=== PATIENT | male | born 1955 | race Caucasian/White ===

== ENCOUNTER 2018-04-29 09:07 | Day surgery (SDC) | payer OTHER ==
[~2018-04-29] VITALS: Ht 175.3 cm; Wt 93.1 kg
[~2018-04-29 09:07] MED LIST: MULTI VITAMINS1 TAB PO; NORVASC 5MG5 MG/TAB PO; PRINIVIL10 MG PO; VALTREX 50500 MG/TAB PO
[2018-04-29 10:05] VITALS: BP 158/99; PULSE 95; TEMP 16
[2018-04-29] MEDS ORDERED: STOOL SOFTENER100 M2 PO (10:12)
[2018-04-29 12:30] VITALS: BP 143/91; PULSE 73; TEMP 98.8
--- NOTE | 2018-04-29 12:30 | NUR ---
Pt to [facility] [place] [facility] via cart from PACU. Pt awake and alert. Denies pain or nausea. Marte catheter draining clear yellow urine to leg bag. Secured with stat lock. Small amount of blood on gauze at tip of penis. [place], soup and water given per pt request. Will continue to monitor. in room. Call light within reach.
[2018-04-29 12:45] VITALS: BP 139/89; PULSE 78
--- NOTE | 2018-04-29 12:45 | NUR ---
Pt continues to rest. Tolerating food and fluids without difficulties. Will continue to monitor. Call light within reach.
[2018-04-29 13:00] VITALS: BP 144/85; PULSE 77
--- NOTE | 2018-04-29 13:00 | NUR ---
O2 discontinued. Will continue to monitor. Call light within reach.
[2018-04-29 13:15] VITALS: BP 119/71; PULSE 90
--- NOTE | 2018-04-29 13:15 | NUR ---
Pt continues to rest. Denies needs. Call light within reach.
--- NOTE | 2018-04-29 13:30 | NUR ---
Instructed on how to DC carlson, and supplies given. Pt and voice understanding. Pt and voice understanding of how to switch between the leg bag/carlson bag from previous surgeries. Discharge instructions provided. IV site discontinued with all parts intact. Pt up to dress with 's assist.
--- NOTE | 2018-04-29 14:00 | NUR ---
Pt escorted to private car via wheel chair. Pt accompanied home by his .
== END 2018-04-29 14:00 | disposition home or self-care (01) ==
LOC: SDCO 09:07
DX: N32.0 Bladder-neck obstruction (principal); E78.5 Hyperlipidemia, unspecified; I10 Essential (primary) hypertension; Z90.79 Acquired absence of other genital organ(s); Z91.040 Latex allergy status; Z85.46 Personal history of malignant neoplasm of prostate; Z80.9 Family history of malignant neoplasm, unspecified; Z83.3 Family history of diabetes mellitus; Z82.49 Family history of ischemic heart disease and other diseases of the circulatory system; Z82.3 Family history of stroke
CPT/HCPCS: C1769; J0690; J2405; J2704; J3010; J3301; J7120